=== PATIENT | male | born 1995 | race Caucasian/White ===

== ENCOUNTER 2018-03-09 16:45 | Emergency (ER) | payer OTHER ==
[~2018-03-09] VITALS: Ht 177.8 cm; Wt 90.9 kg
[2018-03-09 16:47] VITALS: BP 138/78; PULSE 73; TEMP 36.9; O2SAT 98; Ht 177.8 cm; Wt 90.9 kg
--- NOTE | 2018-03-09 17:06 | EMERGENCY ROOM VISIT NOTE ---
History First contact with patient: 16:57 Chief Complaint: LACERATION/CUT (SUT/DERMABOND) Stated Complaint: RIGHT HAND LACERATION Nursing Triage Summary: cut on R hand while cutting plexi glass History of Present Illness The patient is a 22 year old male who presents to the Emergency Room with complaints of a laceration to his right hand. The patient states that he was cutting plexiglass and cut his right hand. He rates his discomfort a 3/10. He does not think his tetanus is up-to-date. He denies any numbness or weakness. Review of Systems A complete 6 point review of systems was reviewed with the patient with pertinent positives and negatives as per history of present illness. All else were negative. Social History Smoking Status: Current Some Day Smoker Housing Status: lives with family Physical Exam Vital Signs Date Time Temp Pulse Resp B/P (MAP) Pulse Ox O2 Delivery O2 Flow Rate FiO2 03/09/18 16:47 36.9 73 20 138/78 98 Room Air Physical Exam VITALS: Vitals are noted on the nurse's note and reviewed by myself. Vital signs stable. GENERAL: This is a 22-year-old male, in no acute distress, nondiaphoretic, well- developed well-nourished. SKIN: There are 2 superficial lacerations to the right palm over the thenar eminence measuring approximately 2 cm each. No active bleeding. The wounds do not gape significantly. Capillary refill within 2 seconds. MUSCULOSKELETAL: Full range of motion of the right hand and all fingers. NEURO: Patient was alert and oriented to person place and time. Distal sensation intact. Medical Decision & Procedures Medical Decision The patient was evaluated as above. He sustained 2 very superficial lacerations to the right hand. The wounds were cleansed and dressed with antibiotic ointment and bandage. The patient was given a tetanus injection. He was advised to observe for signs of infection. He verbalized understanding of my assessment and treatment plan and was discharged home in good condition. Medication Reconcilliation Current Medication List: was personally reviewed by me Blood Pressure Screening Patient's blood pressure: Normal blood pressure Impression Primary Impression: Laceration of hand Departure Information Dispostion Home / Self-Care Condition GOOD Referrals No Doctor, Assigned (PCP) Patient Instructions My [facility] Additional Instructions Proper wound care is essential for adequate wound healing and infection prevention. You can shower and clean the wound with soap and water. Do not scour over the wound, pat dry with a towel. Do not submerse the wound (i.e. bathe or dish wash) until the wound has fully healed. You can use an antibiotic ointment with a dressing over the wound for the next 3-4 days. After this time you may leave the wound dry and open to the air. For pain control, you can use the following [id number]-[id number] medicines (if >12 yo): - Regular strength (325mg/tab) Tylenol (acetaminophen) 2 tabs every 4-6 hours as needed. Do not exceed 12 tablets in a 24 hour period. Avoid taking more than 4 grams (4000 mg) of Tylenol per day. This includes any other sources of acetaminophen you may take on a regular basis. - Regular strength (200 mg/tab) Advil (ibuprofen) 1-2 tabs every 4-6 hours as needed. Do not exceed a dose of 3200 mg per day. Observe the wound for any signs of infection such as increasing redness, swelling, drainage from the wound or any other new/concerning symptoms. Problem Qualifiers Primary Impression: Laceration of hand Encounter type: initial encounter Foreign body presence: without foreign body Laterality: right Qualified Codes: S61.411A - Laceration without foreign body of right hand, initial encounter
[2018-03-09] MEDS ORDERED: DIPHTHERIA/TETANUS/PERTUSSIS 0.5 ML SYR/VIAL IM. ONE (17:15)
== END 2018-03-09 17:17 | disposition home or self-care (01) ==
LOC: C.EDB 16:46 → C.EDD 17:17
DX: S61.411A Laceration without foreign body of right hand, initial encounter (principal); W25.XXXA Contact with sharp glass, initial encounter; Z72.0 Tobacco use